=== PATIENT | male | born 1955 | race Caucasian/White ===

== ENCOUNTER 2024-10-29 14:30 | Outpatient (RCR) | payer MEDICARE, BC, SELFPAY | END 2024-12-10 13:42 | disposition home or self-care (01) | PROVIDERS: PCP Family Medicine; Visit Provider Physician Assistant | DX: S39.012D Strain of muscle, fascia and tendon of lower back, subsequent encounter (principal); M25.551 Pain in right hip; Z51.89 Encounter for other specified aftercare | CPT/HCPCS: 97161; 97530 ==